=== PATIENT | female | born 1960 | race Native Hawaiian/Other Pacific Islander ===

== ENCOUNTER 2022-04-17 06:45 | Day surgery (SDC) | payer OTHER, SELFPAY ==
[2022-04-17] VITALS (8 sets, daily range): BP systolic 143–169; BP diastolic 71–101; PULSE 67–99; RESP 16; TEMP 36.3–36.7; O2SAT 96–100; BMI 26.3
[2022-04-17] MEDS: BUPIVACAINE 0.5% 30 ML INJECTION (07:00)
--- NOTE | 2022-04-17 07:29 | SUR.PREOP ---
SAME DAY SURGERY LOCAL INJECTION SITE VERIFICATION WAS PERFORMED BY SURGEON/PA AND PATIENT PRIOR TO LOCAL ANESTHETIC BEING INJECTED TO OPERATIVE SITE.
[2022-04-17] MEDS: NEOMYCIN/BACITRACIN/POLYMYXIN B 1 APPLIC TOPICAL (07:45)
--- NOTE | 2022-04-17 09:36 | PM.ORPRC ---
Procedure Note Date of procedure: 04/17/22 Procedure: PREOPERATIVE DIAGNOSIS: 1. Right carpal tunnel syndrome POSTOPERATIVE DIAGNOSIS: 1. Right carpal tunnel syndrome PROCEDURE: 1. Right open carpal tunnel release SURGEON: Ramiro Turk MD. ETCHER APPRENTICE PHOTOENGRAVING: VIDHYA Villareal ANESTHESIA: Local anesthetic (50:50 mixture of 1% lidocaine with epi and 0.5% marcaine plain)-10 mL total IMPLANTS: None EBL: 2 mL TOURNIQUET: None COMPLICATIONS: None evident INDICATIONS: The patient is a pleasant 61-year-old female who has experienced right hand numbess/tingling affecting the radial 3.5 digits for multiple months. It has progressively gotten worse. Nonoperative management has been tried and failed, and therefore surgery was recommended. DESCRIPTION OF PROCEDURE: Following a thorough discussion of risks, benefits, and alternatives consent was obtained and the operative extremity was marked. The patient was brought to the operating room and placed supine on the operating table. Local anesthesia induction was undertaken in preop holding. No antibiotics were administered as this was planned to be a local case only. Proper time-out was performed identifying proper patient, site, and procedure. The operative extremity was prepped and draped in the appropriate sterile fashion using ChloraPrep. An incision was made in line with the radial border of the ring finger beginning 1 cm distal to the distal wrist crease and progressing for another 2.5cm distal. Caution was taken to stay proximal to Eubanks's cardinal line. Sharp incision through the skin, subcutaneous tissue, and palmar fascia was performed. The thenar musculature was bluntly elevated off the transverse carpal ligament. The ligament was directly visualized, and divided sharply with a 15 blade. This was released from its most proximal to the most distal extent. Metzenbaum scissor was also utilized to release the fascia extension proximally. We confirmed complete release of the transverse carpal ligament. Closure was performed with 4-O nylon in interrupted fashion. Soft dressings were applied, and the patient was transferred to the recovery room in stable condition. PLAN: 1. Encourage elevation of the operative extremity. 2. Range of motion of the fingers and hand/wrist as tolerated. 3. Ibuprofen/acetaminophen and/or Percocet as needed for pain control. 4. Follow up with PA visit or nurse visit in 12-16 days for wound check and suture removal.
== END 2022-04-17 08:10 | disposition home or self-care (01) ==
PROVIDERS: PCP Family Medicine; Visit Provider Orthopaedic Surgery Sports Medicine
PROC: (CPT 64721; principal; 2022-04-17 07:30)
DX: G56.01 Carpal tunnel syndrome, right upper limb (principal)
CPT/HCPCS: 64721; J3490

== ENCOUNTER 2022-05-29 14:05 | Outpatient (RCR) | payer OTHER, SELFPAY ==
--- NOTE | 2022-05-29 19:01 | OT.OPOE ---
OT Outpatient Ortho Eval OT Outpatient Ortho Eval Start: 05/29/22 06:59 Freq: Status: Active Protocol: Document 05/29/22 07:06 AMB (Rec: 05/29/22 18:55 AMB [id number]) E-signed By Brandi Etienne, OTR/L, CLT, HOOP PUNCHER OT OP Ortho Eval Details Type Type Eval Complexity Low Insurance Information Insurance Information [facility] Insurance Information Comments [facility] [place] History/Precautions Current Condition/Medical Diagnosis Referring Provider Dr Turk Treatment Diagnosis RUE CTR Date of Onset 04/17/22 Medical Conditions None Other Conditions Pt has had CTR on the LUE several years agao Medical/Functional History Medical History Reviewed Yes Prior Level of Function/Mobility Full, pain-free use of BUE ( modified with CTS) Social History 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 Pt states that she still has numbness / paresthesia and is having difficulty bending / moving her fingers. States, I'm moving my hand all the time. Pt states the pain / numbness is about a 7/10 in her right hand. Pain Assessment Pain Present Pain Present Pain Reported Wrist Goniometric Wrist Right Active Flexion (70-90 degrees) 60 L Active Extension (60-70 degrees) 62 Active Ulnar Deviation (20-30 degrees) 40 H Active Radial Deviation (15-20 degrees) 20 ROM Limitations Soft Tissue Tightness Goniometric Comments Goniometric Comments Goniometric Comments 05/29/22 AROM of the RUE hand prior to stretch composite fist -3cm from tip of 3rd digit to DPC, after stretch pt able to reach DPC with tip of 3rd digit. Opposition prior to stretch was to tip of 5th digit, following stretch to PIP of 5th. Hand Pinch/Staff Therapist Strength Hand Right Staff Therapist Strength Position 1 (lbs) 22 Lateral Pinch Strength (lbs) 10 Three Point Pinch (lbs) 6 Left Staff Therapist Strength Position 1 (lbs) 40 Lateral Pinch Strength (lbs) 13 Three Point Pinch (lbs) 11 Edema Assessment Additional Information Comments 05/29/22 Mild swelling is appreciated at the thenar eminence and volar wrist of the RUE, mild through fingers and thumb as well. OT Objective Data Hand Hand Dominance Right Sensation Sensation Assessment Summary Comments 05/29/22 Pt reports paresthesia in the thumb, index, and middle fingers. OT Problems Problems Problems Decreased Strength,Decreased Range of Motion,Sensory Sensitivity,Gripping,Pinching Other Problems Writing,Opening Containers, Fasteners Patient Potential Good Assessment Assessment Assessment Pt presents to OT with complaints of pain, paresthesia, weakness and limited AROM of her RUE following her 04/17/22 CTR surgery. 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 Pt will benefit from skilled OT intervention to address impairments and restore full, pain-free use of her RUE. Occupational Therapy Treatment Plan - OP Potential Rehabilitation Potential Good Set Goals Goals Set with Patient Yes Goals Goals 1. Pt will be independent and compliant with HEP in order to resume full, pain-free use of the involved UE. 3 weeks 2. Pt will demonstrate full, pain-free AROM of the involved UE in order to improve ability to grasp and hold. 6 weeks 3. Pt will demonstrate pain- free tire fabric impregnating range tender and pinch strength comparable to the uninvolved side in order to improve functional grasp, hold, reach, and lifting ability needed to complete self-care, leisure tasks, and work activities. 8 weeks. Target Date 07/29/22 Progress set Treatment Plan Treatment Plan Evaluation,Edema Control,Joint Mobilization,Manual Therapy, Ultrasound,Wound Care/Scar Management,Therapeutic Exercise,Therapeutic Activities,Self-Care/Home Management,Education Expected Frequency 1-2x Week Expected Duration 8-10 Weeks Certification Certification I Certify That: Therapy Services Provided, Therapy Plan Established, Therapy Plan Reviewed Recertification Information Recertification Information Initial Certification Date 05/29/22 Recertification Due Date 08/28/22 Reasons to Continue Skilled Therapy Initiated OT today to address RUE hand weakness, limited ROM , pain, and paresthesia following CTR surgery on Rehabilitation Potential Good Continued Plan of Care and Interventions Please see above Provider Signature Shows Agreement With POC & Medical Necessity Physician Comment/Change Comment or Changes Physician NPI Number #
== END 2022-09-12 23:59 | disposition home or self-care (01) ==
PROVIDERS: PCP Family Medicine; Visit Provider Orthopaedic Surgery Sports Medicine
DX: Z98.890 Other specified postprocedural states (principal); Z51.89 Encounter for other specified aftercare
CPT/HCPCS: 97035; 97110; 97140; 97165; X5282

== ENCOUNTER 2022-12-19 13:44 | Outpatient (CLI) | payer OTHER, SELFPAY | END 2022-12-19 13:45 | disposition home or self-care (01) | PROVIDERS: PCP Family Medicine; Visit Provider Family Medicine | DX: E78.5 Hyperlipidemia, unspecified (principal); R07.89 Other chest pain | CPT/HCPCS: 80048; 80053; 80061 ==